=== PATIENT | male | born 1935 | race Two or more races ===

== ENCOUNTER 2017-08-13 12:31 | Emergency (ER) | payer MEDICARE, MEDICAID ==
[~2017-08-13] VITALS: Ht 170.2 cm; Wt 70.3 kg
--- NOTE | 2017-08-13 12:57 | Emergency Room Report ---
History of Present Illness General Chief Complaint: Multiple Trauma/Fall Source: Patient, EMS Present Illness HPI The patient is an 82-year-old male brought in by EMS from an assisted living facility for left-sided hip pain and back pain after slipping and falling yesterday. It was said that he was transitioning from toilet to his wheelchair , slipped, and fell onto his buttock. Pain is now a 9/10 dull ache and does not radiate from these areas. Worse with movement. He denies any other pain or symptoms Allergies: Coded Allergies: No Known Allergies (Unverified , 08/13/17) Patient History Past Medical History: see triage record Pertinent Family History: none Reviewed Nursing Documentation: PMH: Agreed, PSxH: Agreed Nursing Documentation-PMH Hx Hypertension: Yes Hx Diabetes: Yes Review of Systems All Other Systems: negative except mentioned in HPI Physical Exam Vital Signs Date Time Temp Pulse Resp B/P (MAP) Pulse Ox O2 Delivery O2 Flow Rate FiO2 08/13/17 12:24 100.0 85 20 150/84 96 Room Air Sp02 EP Interpretation: reviewed, normal General Appearance: no apparent distress, alert, GCS 15, non-toxic Head: normocephalic, atraumatic Eyes: bilateral eye normal inspection, bilateral eye PERRL ENT: hearing grossly normal, normal pharynx, no angioedema, normal voice Respiratory: chest non-tender, lungs clear, normal breath sounds, speaking full sentences Gastrointestinal: normal bowel sounds, non tender, soft, non-distended, no guarding, no rebound Musculoskeletal: normal range of motion - bilat hips and knees, no calf tenderness, pelvis stable, tender - midline L spine, L pelvis Neurologic: alert, oriented x3, responsive, motor strength/tone normal, sensory intact, speech normal Psychiatric: judgement/insight normal, memory normal, mood/affect normal, no suicidal/homicidal ideation Skin: normal color, no rash, warm/dry, well hydrated Medical Decision Making PA Attestation Dr. Michaels is my supervising physician. Patient management was discussed with my supervising physician Diagnostic Impression: Primary Impression: Contusion of hip, left Qualified Codes: S70.02XA - Contusion of left hip, initial encounter ER Course The patient is an 82-year-old male brought in by EMS from an assisted living facility for left-sided hip pain and back pain after slipping and falling yesterday Ddx considered include but not limited to sprain/strain, fracture, contusion PE: NAD Head NC/AT. There is tenderness to palpation over the mid L-spine. No step-offs. No deformity. There is also tenderness to palpation over the left lateral and anterior hip. No deformity. No leg length discrepancy. No ecchymosis Full AROM intact of bilat hips and knees Chest x-ray unremarkable CT scan of the L. spine and pelvis shows no acute findings The patient is given Tylenol #3 for pain and is feeling better. He'll be discharged back to his facility with the same medication. ER precautions are given Chest X-Ray Diagnostic Results Chest X-Ray Diagnostic Results : Chest X-Ray Ordered: Yes # of Views/Limited/Complete: 1 View Indication: Other EP Interpretation: Yes PA Xray: Interpretation reviewed, by supervising MD, and agrees with findings. Interpretation: no consolidation, no effusion, no pneumothorax, no acute cardiopulmonary disease Impression: No acute disease Electronically Signed by: Curt Black PA-C CT/MRI/US Diagnostic Results CT/MRI/US Diagnostic Results #1: Imaging Test Ordered: CT L spine Impression no acute findings CT/MRI/US Diagnostic Results #2: Imaging Test Ordered: CT pelvis Impression no acute findings Last Vital Signs Date Time Temp Pulse Resp B/P (MAP) Pulse Ox O2 Delivery O2 Flow Rate FiO2 08/13/17 12:24 100.0 85 20 150/84 96 Room Air Status: improved Disposition: ASSISTED LIVING Condition: Improved Scripts Acetaminophen With Codeine (T#3) (TYLENOL #3 TAB*) Y Tab 1 TAB ORAL Q6HR Y for For Pain, #8 TAB Prov: CURT BLACK 08/13/17 CURT BLACK Aug 13, 2017 12:57
[2017-08-13] MEDS ORDERED: Tylenol #3 tab (300mg/30mg) ORAL ONE (13:30)
--- NOTE | 2017-08-13 13:49 | Diagnostic Imaging Report ---
Indication: Back pain. Trauma. Technique: Continuous helical transaxial imaging of the lumbar spine was obtained from the lung bases to the pubic symphysis. No IV contrast was administered. Coronal 2-D reformats were also obtained. Study obtained in a Siemens sensation [address] Total Dose length Product (DLP): 432.[address] Dose Index Volume (CTDIvol): 14.79 mGy Comparison: None Findings: No acute fracture is identified. The bones are osteopenic. Multilevel narrowing of intervertebral discs demonstrated especially at L2-3, L3-4 and L4-5 characterized by narrowing and desiccation. Endplate spurs are noted multiple levels. There is hypertrophied facets at multiple levels. Narrowing of the neural foramina are demonstrated at the L3-4 and L4-5 and L5-S1 bilaterally worse on the right. Aorta is moderately calcified. 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 Atherosclerotic disease The CT scanner at [facility] is accredited by the [employer] and the scans are performed using dose optimization techniques as appropriate to a performed exam including Automatic Exposure control.
--- NOTE | 2017-08-13 14:10 | Diagnostic Imaging Report ---
Indication: Pelvic trauma and pain Technique: Continuous helical transaxial imaging of the pelvis was obtained from the iliac crest to the pubic symphysis. Coronal 2-D reformats were also obtained. Study obtained in a Siemens sensation [address] Intravenous non-ionic contrast was administered. Total Dose length Product (DLP): 373.[address] Dose Index Volume (CTDIvol): 13.23 mGy Comparison: None Findings: No acute fracture is identified. Bones are osteopenic. Moderate stool retention within the rectum noted. Vascular calcifications noted. Impression: No acute fracture identified. The CT scanner at [facility] is accredited by the [employer] and the scans are performed using dose optimization techniques as appropriate to a performed exam including Automatic Exposure control.
[2017-08-13] MEDS ORDERED: ACETAMINOPHEN-1 EAC1 ORAL (14:19)
[2017-08-13 14:28] VITALS: BP 165/90
--- NOTE | 2017-08-13 16:11 | Diagnostic Imaging Report ---
Indication: Chest pain. Trauma Comparison: None A single view chest radiograph was obtained. Findings: Sternotomy noted. No definite infiltrate or pulmonary vascular congestion identified. The heart is enlarged. The aorta is mildly enlarged consistent with atherosclerotic vascular disease. The bones are osteopenic. Impression: No acute disease
[2017-08-13 16:46] VITALS: BP 161/89
[2017-08-13 16:47] VITALS: BP 161/89
== END 2017-08-13 16:49 | disposition home or self-care (01) ==
LOC: EDBD 12:31 → EMR 13:50
DX: S70.02XA Contusion of left hip, initial encounter (principal); I10 Essential (primary) hypertension; E11.9 Type 2 diabetes mellitus without complications; M54.9 Dorsalgia, unspecified; W01.0XXA Fall on same level from slipping, tripping and stumbling without subsequent striking against object, initial encounter; Y92.129 Unspecified place in nursing home as the place of occurrence of the external cause
CPT/HCPCS: 71045; 72131; 72192; 99284

== ENCOUNTER 2017-08-16 13:16 | Inpatient (IN) | payer MEDICARE, MEDICAID ==
[~2017-08-16] VITALS: Ht 172.7 cm; Wt 69.9 kg
[~2017-08-16 13:16] MED LIST: ACETAMINOPHEN-1 EAC1 ORAL
[2017-08-16 13:53] VITALS: BP 137/60
--- NOTE | 2017-08-16 14:16 | Emergency Room Report ---
History of Present Illness General Chief Complaint: Multiple Trauma/Fall Source: Patient, Medical Record, EMS Present Illness HPI 82-year-old male presents with productive cough and chills for 2-3 days. denies chest pain, shortness of breath Patient was here 3 days prior for lower back pain after traumatic fall, had negative CT pelvis and negative CT LS spine HPI otherwise limited d/t ?dementia, Allergies: Coded Allergies: No Known Allergies (Unverified , 08/13/17) Patient History Past Medical History: old chart reviewed Past Surgical History: none Pertinent Family History: none Social History: Denies: smoking, alcohol use, drug use Immunizations: UTD Reviewed Nursing Documentation: PMH: Agreed, PSxH: Agreed Nursing Documentation-PMH Past Medical History: No History, Except For Hx Hypertension: Yes Hx Asthma: Yes Hx Diabetes: Yes Review of Systems All Other Systems: negative except mentioned in HPI Physical Exam Vital Signs Date Time Temp Pulse Resp B/P (MAP) Pulse Ox O2 Delivery O2 Flow Rate FiO2 08/16/17 13:10 99.3 78 24 144/78 97 Nasal Cannula 2.0 Sp02 EP Interpretation: reviewed, normal General Appearance: normal inspection, well appearing, no apparent distress, alert, GCS 15, non-toxic Head: normocephalic, atraumatic Eyes: bilateral eye PERRL, bilateral eye EOMI ENT: normal ENT inspection, hearing grossly normal, normal pharynx, no angioedema, normal voice, TMs + canals normal, uvula midline, moist mucus membranes Neck: normal inspection, full range of motion, supple, thyroid normal, no meningismus, no bony tend Respiratory: normal inspection, lungs clear, normal breath sounds, no respiratory distress, no retraction, no accessory muscle use, rhonchi, speaking full sentences, other - Rhonchi right lung Cardiovascular #1: regular rate, rhythm, no edema, no JVD, normal capillary refill Gastrointestinal: normal inspection, normal bowel sounds, non tender, soft, no mass, no peritonitis, non-distended, no guarding, no hernia, no pulsatile mass Genitourinary: no CVA tenderness Musculoskeletal: normal inspection, back normal, normal range of motion, no calf tenderness, pelvis stable, Bruno's Sign negative Neurologic: normal inspection, alert, responsive, campaign analyst III-XII nml as tested, motor strength/tone normal, cerebellar normal, normal gait, speech normal Psychiatric: normal inspection, judgement/insight normal, mood/affect normal, no suicidal/homicidal ideation, no delusions Skin: normal inspection, normal color, no rash Lymphatic: normal inspection, no adenopathy Medical Decision Making Diagnostic Impression: Primary Impression: Pneumonia Qualified Codes: J18.9 - Pneumonia, unspecified organism Additional Impressions: Cough COLE (acute kidney injury) ER Course 82-year-old male with cough, rhonchi on exam of right lung vitals signs stable, afebrile Very well-appearing, not septic X-rays not demonstrate a lobar pneumonia however Will treat empirically given exam and history of present illness blood cultures pending Labs: no leukocytosis, elevated creatinine could be COLE versus CKD, patient unaware of current kidney function Endorsed to Dr Eric at 216pm as PMD Tele bed EKG Diagnostic Results Rate: normal Rhythm: NSR ST Segments: no acute changes ASA given to the pt in ED: No Rhythm Strip Diag. Results EP Interpretation: yes Rate: 75 Rhythm: NSR, no PVC's, no ectopy Chest X-Ray Diagnostic Results Chest X-Ray Diagnostic Results : Chest X-Ray Ordered: Yes # of Views/Limited/Complete: 1 View Indication: Shortness of Breath EP Interpretation: Yes Interpretation: no consolidation, no effusion, no pneumothorax, no acute cardiopulmonary disease Impression: No acute disease Electronically Signed by: Dr Leon Joyner MD Last Vital Signs Date Time Temp Pulse Resp B/P (MAP) Pulse Ox O2 Delivery O2 Flow Rate FiO2 08/16/17 13:53 99.5 76 23 137/60 99 Nasal Cannula 2.0 Status: improved Disposition: ADMITTED INPATIENT Condition: Serious Referrals: DARREN CADE (PCP) LEON JOYNER M.D. Aug 16, 2017 14:16
--- NOTE | 2017-08-16 14:45 | Diagnostic Imaging Report ---
Indication: Cough Comparison: 08/13/2017 A single view chest radiograph was obtained. Findings: Lung volumes are low and there is vascular crowding at the bases.. Heart size and mediastinal contours are stable. Patient again noted to be status post median sternotomy. Multiple surgical clips project over the central chest. There is no definite focal airspace consolidation. No pleural effusion or pneumothorax. No acute osseous abnormality seen IMPRESSION: No definite focal airspace consolidation. No significant interval change from prior exam 08/13/2017.
[2017-08-16 14:46] LABS: EOSINOPHILS % (AUTO) 0.7 % (0.0-3.0); HEMOGLOBIN 14.5 G/DL (14.2-18.0); LYMPHOCYTES % (AUTO) 32.6 % (20.0-45.0); MEAN CORPUSCULAR VOLUME 91 FL (80-99); MONOCYTES % (AUTO) 11.1 % (1.0-10.0); NEUTROPHILS % (AUTO) 54.7 % (45.0-75.0); PLATELET COUNT 206 K/UL (150-450); RED BLOOD COUNT 4.72 M/UL (4.70-6.10); WHITE BLOOD COUNT 7.5 K/UL (4.8-10.8)
[2017-08-16 15:07] LABS: ANION GAP 12 mmol/L (5-15); BLOOD UREA NITROGEN 61 mg/dL (7-18); CALCIUM 9.7 MG/DL (8.5-10.1); CARBON DIOXIDE 24 MMOL/L (21-32); CHLORIDE 103 MMOL/L (98-107); CREATININE 2.1 MG/DL (0.55-1.30); POTASSIUM 4.1 MMOL/L (3.5-5.1); SODIUM 139 MMOL/L (136-145)
[2017-08-16 15:12] LABS: ALANINE AMINOTRANSFERASE 24 U/L (12-78); ALBUMIN 3.6 G/DL (3.4-5.0); ALBUMIN/GLOBULIN RATIO 0.7 (1.0-2.7); ALKALINE PHOSPHATASE 65 U/L (46-116); ASPARTATE AMINO TRANSFERASE 35 U/L (15-37); BILIRUBIN,TOTAL 0.5 MG/DL (0.2-1.0)
[2017-08-16 15:57] VITALS: BP 140/51
[2017-08-16] MEDS ORDERED: Oseltamivir 75mg cap ORAL ONE (16:15)
--- NOTE | 2017-08-16 17:21 | Infectious Diseases Prog Note ---
Assessment/Plan Problems: (1) Influenza A Assessment & Plan: will start tamiflu renally dosed for 5 days , and keep in droplet isolation (2) Pneumonia Assessment & Plan: due to the above, continue Levaquin empiric coverage, monitor CXR (3) Sepsis Assessment & Plan: due to the above, will send blood culture and continue levaquin for now (4) Fever Assessment & Plan: due to the above, continue antibiotics and Tylenol (5) Diabetes mellitus Assessment & Plan: recommend tight glycemic control to keep blood glucose between 100-140 Subjective Allergies: Coded Allergies: No Known Allergies (Unverified , 08/13/17) Objective Vital Signs Last 24 Hour Vital Signs Date Time Temp Pulse Resp B/P (MAP) Pulse Ox O2 Delivery O2 Flow Rate FiO2 08/16/17 15:57 98.8 74 23 140/51 98 Room Air 74 08/16/17 13:53 99.5 76 23 137/60 99 Nasal Cannula 2.0 08/16/17 13:10 99.3 78 24 144/78 97 Nasal Cannula 2.0 Height (Feet): 5 Height (Inches): 10.00 Weight (Pounds): 170 Microbiology Date/Time Source Procedure Growth Status 08/16/17 14:50 Nasal Nares Influenza Types A,B Antigen ([facility]) - Final Complete Laboratory Tests Test 08/16/17 14:25 White Blood Count 7.5 K/UL (4.8-10.8) Red Blood Count 4.72 M/UL (4.70-6.10) Hemoglobin 14.5 G/DL (14.2-18.0) Hematocrit 43.0 % (42.0-52.0) Mean Corpuscular Volume 91 FL (80-99) Mean Corpuscular Hemoglobin 30.7 PG (27.0-31.0) Mean Corpuscular Hemoglobin Concent 33.7 G/DL (32.0-36.0) Red Cell Distribution Width 11.0 % (11.6-14.8) L Platelet Count 206 K/UL (150-450) Mean Platelet Volume 7.0 FL (6.5-10.1) Neutrophils (%) (Auto) 54.7 % (45.0-75.0) Lymphocytes (%) (Auto) 32.6 % (20.0-45.0) Monocytes (%) (Auto) 11.1 % (1.0-10.0) H Eosinophils (%) (Auto) 0.7 % (0.0-3.0) Basophils (%) (Auto) 1.0 % (0.0-2.0) Sodium Level 139 MMOL/L (136-145) Potassium Level 4.1 MMOL/L (3.5-5.1) Chloride Level 103 MMOL/L (98-107) Carbon Dioxide Level 24 MMOL/L (21-32) Anion Gap 12 mmol/L (5-15) Blood Urea Nitrogen 61 mg/dL (7-18) H Creatinine 2.1 MG/DL (0.55-1.30) H Estimat Glomerular Filtration Rate mL/min (>60) Glucose Level 205 MG/DL (74-106) H Calcium Level 9.7 MG/DL (8.5-10.1) Total Bilirubin 0.5 MG/DL (0.2-1.0) Aspartate Amino Transf (AST/SGOT) 35 U/L (15-37) Alanine Aminotransferase (ALT/SGPT) 24 U/L (12-78) Alkaline Phosphatase 65 U/L (46-116) Total Protein 8.6 G/DL (6.4-8.2) H Albumin 3.6 G/DL (3.4-5.0) Globulin 5.0 g/dL Albumin/Globulin Ratio 0.7 (1.0-2.7) L Current Medications Medications (Trade) Dose Ordered Sig/Sai Route PRN Reason Start Time Stop Time Status Last Admin Dose Admin Oseltamivir Phosphate (Tamiflu) 30 mg BID ORAL 08/16/17 18:00 08/21/17 17:59 Sodium Chloride 1,000 ml @ 75 mls/hr [id number] IV 08/16/17 18:30 09/15/17 18:29 Hernandez Garrett M.D. Aug 16, 2017 17:21
[2017-08-16] MEDS ORDERED: MIRTAZAPINE7.5 MG ORAL (18:26)
[2017-08-16 18:30] VITALS: BP 127/90
[2017-08-16] MEDS ORDERED: VESICARE5 MG ORAL (18:34)
[2017-08-16] MEDS ORDERED: JANUVIA100 MG ORAL (18:34)
[2017-08-16] MEDS ORDERED: TAMSULOSIN HCL0.4 MG ORAL (18:34)
[2017-08-16] MEDS ORDERED: LYRICA25 MG ORAL (18:34)
[2017-08-16] MEDS ORDERED: RAMIPRIL10 MG ORAL (18:34)
[2017-08-16] MEDS ORDERED: DONEPEZIL HCL10 MG ORAL (18:34)
[2017-08-16] MEDS ORDERED: AMLODIPINE BESYL5 MG ORAL (18:34)
[2017-08-16] MEDS ORDERED: PLAVIX75 MG ORAL (18:34)
[2017-08-16] MEDS ORDERED: CATAPRES0.1 MG ORAL (18:34)
[2017-08-16] MEDS ORDERED: MELOXICAM7.5 MG PO (18:34)
[2017-08-16] MEDS ORDERED: DOK250 M1 PO (18:34)
[2017-08-16] MEDS ORDERED: ECONAZOLE NITRA15 GM TOP (18:34)
[2017-08-16] MEDS ORDERED: METFORMIN HCL1000 M1 ORAL (18:34)
[2017-08-16] MEDS ORDERED: JARDIANCE PO (18:46)
[2017-08-16] MEDS ORDERED: [UNRECOGNIZED DRUG - CODE] (18:46)
[2017-08-16 19:30] VITALS: BP 140/53
[2017-08-16] MEDS: Ramipril 5mg cap ORAL SCH (21:00)
[2017-08-16] MEDS: Donepezil 10mg tab ORAL SCH (21:34)
[2017-08-16] MEDS: Tamsulosin 0.4mg cap ORAL SCH (21:34)
[2017-08-16] MEDS: NovoLOG Insulin Flexpen SUBQ SCH (21:36)
--- NOTE | 2017-08-16 21:45 | History and Physical Report ---
DATE OF ADMISSION: 08/16/2017 CHIEF COMPLAINT: Cough for past 4 or 5 days. 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 The patient had a fall last week and was brought in by paramedics and CT of pelvic and spine were done and were negative for any fracture. The patient has not been eating and he had very poor appetite in the assisted living where he resides. He denies any shortness of breath or chest pain. PAST MEDICAL HISTORY: History of hypertension, diabetes, BPH, mild dementia, coronary artery disease, depression, and osteoarthritis. PAST SURGICAL HISTORY: None. ALLERGIES: No known drug allergies. SOCIAL HISTORY: No history of smoking, alcohol or drug use. FAMILY HISTORY: Noncontributory. REVIEW OF SYSTEMS: Negative except per history of present illness. PHYSICAL EXAMINATION: GENERAL APPEARANCE: Alert and oriented x3. No acute distress. VITAL SIGNS: Temperature 99.3 degrees, pulse 78, respirations 24, blood pressure 144/78, and pulse oximetry 97% on 2 liters. HEENT: Normocephalic and normochromic. Extraocular muscles intact. Throat is clear. NECK: Supple. No lymphadenopathy. LUNGS: Clear to auscultation, but slight rhonchi on the right side. CARDIOVASCULAR: Regular rate and rhythm. No murmur or gallop. ABDOMEN: Soft, nontender, and nondistended. Positive bowel sounds. EXTREMITIES: No edema, cyanosis or clubbing. GENITOURINARY: No CVA tenderness. NEUROLOGIC: Respond to commands and cranial nerve II through XII is intact. SKIN: No rash. LABORATORY AND DIAGNOSTIC DATA: WBC 7.5, hemoglobin 14.5, hematocrit 43.0, platelet count 206, neutrophils 54.7, lymphocytes 32, and monos 11.1. Sodium 139, potassium 4.1, chloride 103, BUN is 61, and creatinine 2.1. Glucose 205. Calcium 9.7. Bilirubin 0.5. AST 35, ALT 24, and alkaline phosphatase 65. Total protein 8.6. Albumin 3.6. Chest x-ray did not show any consolidation. Microbiology showed influenza A positive. IMPRESSION AND PLAN: 1. Influenza A. 2. Pneumonia. 3. Hypertension. 4. Diabetes mellitus type 2. 5. Acute renal failure secondary to prerenal azotemia. We will hydrate the patient with intravenous fluids and control the infection with intravenous antibiotics. Also restart the patient on Tamiflu and consult ID for further care. Restart the patient's home medications while the patient goes to the floor. This patient will be admitted for minimum of two-night stay for diagnoses of influenza and pneumonia. Oliver Mcallister M.D. DR: LIZZ JOB#: [id number] CC: AYO
--- NOTE | 2017-08-16 22:45 | Consultation ---
DATE OF CONSULTATION: 08/16/2017 INFECTIOUS DISEASE CONSULTATION CONSULTING PHYSICIAN: Hernandez Garrett M.D. REQUESTING PHYSICIAN: Oliver Mcallister M.D. REASON FOR CONSULTATION: Influenza A infection with pneumonia, possible sepsis, recommendation for antibiotics treatment. HISTORY OF PRESENT ILLNESS: The patient is an 82-year-old male with past medical history of hypertension, asthma, and diabetes, was brought in from assisted living for productive cough and chills for three days. The patient was recently evaluated in the emergency room for lower back pain after he fell and had a negative CT scan of the pelvic and lumbar spine today and he was brought in for fever and persistent cough. The patient was found to be febrile in the emergency room and had influenza screening, which turned back positive for influenza A. Chest x-ray did not show any significant infiltration, but he was coughing with phlegm, so the patient received Tamiflu and Levaquin in the emergency room and I was consulted by the primary provider for antibiotics treatment and further management. As of note, the patient has dementia, poor historian, unable to provide good history. History was mainly obtained from the medical record. REVIEW OF SYSTEMS: Unable to obtain, the patient is a poor historian, cannot provide good history. PAST MEDICAL HISTORY: Significant for hypertension, asthma, and diabetes. PAST SURGICAL HISTORY: Negative. ALLERGIES: He has no known drug allergy. MEDICATIONS: He received Tamiflu and Levaquin in the emergency room. For the rest of his medications, please refer to MAR. SOCIAL HISTORY: The patient lives in the assisted living. Denied using any drugs, tobacco, or alcohol. FAMILY HISTORY: Unable to obtain. PHYSICAL EXAMINATION: VITAL SIGNS: Temperature 99.5, pulse 76, respirations 23, blood pressure 127/60, and saturation 99% on two liters nasal cannula. GENERAL: Elderly male, lying in bed, awake, alert, coughing, not in acute distress. HEENT: Normocephalic and atraumatic. Pupils are reactive to light. Moist oral mucosa. He has denture with no ulceration or thrush. NECK: Supple. No lymphadenopathy. CARDIOVASCULAR: Regular rate and rhythm. No murmur or gallop. LUNGS: He had crackles and rhonchi on the right side. Diminished breathing sounds. ABDOMEN: Soft, nontender, and nondistended. Positive bowel sounds. No hepatosplenomegaly. No ascites. EXTREMITIES: No edema or cyanosis. LABORATORY AND DIAGNOSTIC DATA: Labs showed white count of 7.5, hemoglobin of 14.5, and platelet count of 206,000. BUN of 61, creatinine of 2.1. AST of 35, ALT of 24. Microbiology, influenza screening was positive for influenza A. Imaging, chest x-ray showed no definite focal airspace consolidation, no significant interval change from prior exam on 08/13/2017. ASSESSMENT AND RECOMMENDATIONS: 1. Influenza A. We will start the patient on Tamiflu renally dosed for five days keeping in droplet isolation for now. 2. Pneumonia, suspect due to influenza complication. We will continue Levaquin empiric coverage. Monitor chest x-ray. 3. Sepsis due to the above. We will send blood culture and continue Levaquin empiric coverage pending culture. 4. Fever due to the above. Continue antibiotics and Tylenol as needed. 5. Diabetes. Recommend tight glycemic control to keep blood glucose between 100 to 140. Thank you for the consult. Infectious Disease will continue to follow. Hernandez Garrett M.D. DR: JEN JOB#: [id number] CC:
[2017-08-17] VITALS: BP 146/73
[2017-08-17 04:00] VITALS: BP 157/69
[2017-08-17] MEDS: sitaGLIPtin 25mg tab ORAL SCH (06:39)
[2017-08-17] MEDS: NovoLOG Insulin Flexpen SUBQ SCH ×4 (06:40→21:16)
[2017-08-17 07:53] LABS: BASOPHILS % (AUTO) 1.3 % (0.0-2.0); EOSINOPHILS % (AUTO) 1.1 % (0.0-3.0); HEMATOCRIT 36.8 % (42.0-52.0); HEMOGLOBIN 12.5 G/DL (14.2-18.0); LYMPHOCYTES % (AUTO) 32.6 % (20.0-45.0); MEAN CORPUSCULAR VOLUME 91 FL (80-99); MONOCYTES % (AUTO) 11.6 % (1.0-10.0); NEUTROPHILS % (AUTO) 53.4 % (45.0-75.0); PLATELET COUNT 166 K/UL (150-450); RED BLOOD COUNT 4.06 M/UL (4.70-6.10); RED CELL DISTRIBUTION WIDTH 11.1 % (11.6-14.8); WHITE BLOOD COUNT 6.5 K/UL (4.8-10.8)
[2017-08-17 08:00] VITALS: BP 139/65
[2017-08-17 08:36] LABS: ANION GAP 13 mmol/L (5-15); BLOOD UREA NITROGEN 54 mg/dL (7-18); CALCIUM 9.2 MG/DL (8.5-10.1); CARBON DIOXIDE 21 MMOL/L (21-32); CHLORIDE 105 MMOL/L (98-107); CREATININE 1.8 MG/DL (0.55-1.30); SODIUM 138 MMOL/L (136-145)
[2017-08-17] MEDS: Ramipril 5mg cap ORAL SCH ×2 (08:40→21:15)
[2017-08-17] MEDS ORDERED: Oseltamivir 75mg cap ORAL SCH (09:00)
[2017-08-17 09:33] LABS: APPEARANCE,URINE CLEAR; BILIRUBIN, URINE NEGATIVE (NEGATIVE); GLUCOSE, URINE (UA) NEGATIVE (NEGATIVE); KETONES,URINE NEGATIVE (NEGATIVE); LEUKOCYTE ESTERASE ,URINE NEGATIVE (NEGATIVE); NITRITE,URINE NEGATIVE (NEGATIVE); PH,URINE 5 (4.5-8.0); PROTEIN,URINE 2+ (NEGATIVE); UROBILINOGEN,URINE NORMAL MG/DL (0.0-1.0)
[2017-08-17 09:39] LABS: COLOR,URINE YELLOW
[2017-08-17 12:15] VITALS: BP 145/71
--- NOTE | 2017-08-17 14:59 | Infectious Diseases Prog Note ---
Assessment/Plan Problems: (1) Influenza A Assessment & Plan: continue tamiflu renally dosed for 5 days , and keep in droplet isolation for now (2) Pneumonia Assessment & Plan: due to the above, continue Levaquin empiric coverage, monitor CXR (3) Sepsis Assessment & Plan: due to the above, await blood culture and continue levaquin for now (4) Fever Assessment & Plan: due to the above, continue antibiotics and Tylenol (5) Diabetes mellitus Assessment & Plan: recommend tight glycemic control to keep blood glucose between 100-140 Subjective Constitutional: Reports: fatigue HEENT: Reports: no symptoms Respiratory: Reports: productive cough Breasts: Reports: no symptoms Cardiovascular: Reports: no symptoms Gastrointestinal/Abdominal: Reports: no symptoms Genitourinary: Reports: no symptoms Neurologic: Reports: weakness Psychiatric: Reports: no symptoms Skin: Reports: no symptoms Endocrine: Reports: no symptoms Hematologic: Reports: no symptoms Allergies: Coded Allergies: No Known Allergies (Unverified , 08/13/17) Objective Vital Signs Last 24 Hour Vital Signs Date Time Temp Pulse Resp B/P (MAP) Pulse Ox O2 Delivery O2 Flow Rate FiO2 08/17/17 12:15 97.3 78 21 145/71 97 Room Air 08/17/17 08:41 68 135/65 08/17/17 08:40 135/65 08/17/17 08:00 97.3 68 18 139/65 97 08/17/17 04:00 Room Air 08/17/17 04:00 98.2 87 20 157/69 96 08/17/17 00:00 Room Air 08/17/17 00:00 97.0 78 20 146/73 96 08/16/17 21:00 142/76 08/16/17 20:10 75 20 140/53 96 Room Air 08/16/17 19:30 99.5 75 20 140/53 96 Room Air 2.0 08/16/17 18:30 99.4 73 16 127/90 99 Room Air 73 08/16/17 15:57 98.8 74 23 140/51 98 Room Air 74 Height (Feet): 5 Height (Inches): 8.00 Weight (Pounds): 154 General Appearance: WD/WN, no acute distress HEENT: normocephalic, atraumatic, anicteric, mucous membranes moist, PERRL, EOMI, pharynx normal, supple, no JVD Respiratory/Chest: chest wall non-tender, no respiratory distress, no accessory muscle use, decreased breath sounds, crackles/rales Cardiovascular: normal peripheral pulses, normal rate, regular rhythm, no gallop/murmur, no JVD Abdomen: normal bowel sounds, soft, non tender, no organomegaly, non distended , no mass, no scars Extremities: no cyanosis, no clubbing Skin: no rash, no lesions, no ulcers Neurologic/Psychiatric: alert, responsive Microbiology Date/Time Source Procedure Growth Status 08/16/17 14:50 Nasal Nares Influenza Types A,B Antigen ([facility]) - Final Complete Laboratory Tests Test 08/17/17 05:30 08/17/17 06:17 Urine Color Yellow Urine Appearance Clear Urine pH 5 (4.5-8.0) Urine Specific [place] 1.020 (1.005-1.035) Urine Protein 2+ (NEGATIVE) H Urine Glucose (UA) Negative (NEGATIVE) Urine Ketones Negative (NEGATIVE) Urine Occult Blood Negative (NEGATIVE) Urine Nitrite Negative (NEGATIVE) Urine Bilirubin Negative (NEGATIVE) Urine Urobilinogen Normal MG/DL (0.0-1.0) Urine Leukocyte Esterase Negative (NEGATIVE) Urine RBC 0 /HPF (0 - 0) Urine WBC 0-2 /HPF (0 - 0) Urine Squamous Epithelial Cells Occasional /LPF Urine Bacteria Few /HPF (NONE) Urine Fine Granular Casts 0-2 /LPF (NONE) H White Blood Count 6.5 K/UL (4.8-10.8) Red Blood Count 4.06 M/UL (4.70-6.10) L Hemoglobin 12.5 G/DL (14.2-18.0) L Hematocrit 36.8 % (42.0-52.0) L Mean Corpuscular Volume 91 FL (80-99) Mean Corpuscular Hemoglobin 30.7 PG (27.0-31.0) Mean Corpuscular Hemoglobin Concent 33.9 G/DL (32.0-36.0) Red Cell Distribution Width 11.1 % (11.6-14.8) L Platelet Count 166 K/UL (150-450) Mean Platelet Volume 6.6 FL (6.5-10.1) Neutrophils (%) (Auto) 53.4 % (45.0-75.0) Lymphocytes (%) (Auto) 32.6 % (20.0-45.0) Monocytes (%) (Auto) 11.6 % (1.0-10.0) H Eosinophils (%) (Auto) 1.1 % (0.0-3.0) Basophils (%) (Auto) 1.3 % (0.0-2.0) Sodium Level 138 MMOL/L (136-145) Potassium Level 4.0 MMOL/L (3.5-5.1) Chloride Level 105 MMOL/L (98-107) Carbon Dioxide Level 21 MMOL/L (21-32) Anion Gap 13 mmol/L (5-15) Blood Urea Nitrogen 54 mg/dL (7-18) H Creatinine 1.8 MG/DL (0.55-1.30) H Estimat Glomerular Filtration Rate mL/min (>60) Glucose Level 170 MG/DL (74-106) H Calcium Level 9.2 MG/DL (8.5-10.1) Current Medications Medications (Trade) Dose Ordered Sig/Sai Route PRN Reason Start Time Stop Time Status Last Admin Dose Admin Amlodipine Besylate (Norvasc) 5 mg DAILY ORAL 08/17/17 09:00 09/16/17 08:59 08/17/17 08:41 Clopidogrel Bisulfate (Plavix) 75 mg DAILY ORAL 08/17/17 09:00 09/16/17 08:59 08/17/17 08:40 Dextrose (Dextrose 50%) STAT PRN IV Hypoglycemia 08/16/17 18:45 09/15/17 18:44 Donepezil HCl (Aricept) 10 mg QHS ORAL 08/16/17 21:00 09/15/17 20:59 08/16/17 21:34 Insulin Aspart (NovoLOG) BEFORE MEALS AND HS SUBQ 08/16/17 21:00 09/15/17 20:59 08/17/17 06:40 Levofloxacin 150 ml @ 150 mls/hr Q48H IVPB 08/18/17 15:00 08/25/17 23:59 Meloxicam (Mobic) 7.5 mg DAILY ORAL 08/17/17 09:00 09/16/17 08:59 08/17/17 08:40 Mirtazapine (Remeron) 7.5 mg BEDTIME ORAL 08/16/17 21:00 09/15/17 20:59 08/16/17 21:34 Oseltamivir Phosphate (Tamiflu) 30 mg BID ORAL 08/16/17 18:00 08/21/17 17:59 08/17/17 08:40 Ramipril (Altace) 10 mg Q12HR ORAL 08/16/17 21:00 09/15/17 20:59 08/17/17 08:40 Sitagliptin Phosphate (Januvia) 25 mg ACBREAKFAST ORAL 08/17/17 06:30 09/16/17 06:29 08/17/17 06:39 Sodium Chloride 1,000 ml @ 75 mls/hr [id number] IV 08/16/17 18:30 09/15/17 18:29 08/17/17 12:45 Tamsulosin HCl (Flomax) 0.4 mg BEDTIME ORAL 08/16/17 21:00 09/15/17 20:59 08/16/17 21:34 Hernandez Garrett M.D. Aug 17, 2017 14:59
[2017-08-17 16:13] VITALS: BP 135/74
--- NOTE | 2017-08-17 18:09 | General Progress Note ---
Assessment/Plan Status: stable Assessment/Plan 1. Influenza A - cont renal dose Tamiflu bid for total of 5 days. 2. Clinical Pneumonia - cont levaquin 3. DM II - on Januvia and SSI for now. 4. HTN - controlled on home meds. 5. CAD - on Plavix 75 mg one po daily. 6. BPH - cont flomax 0.4 mg po qhs. 7. Depression - on remeron 7.5 mg po qhs 8. ARF - improving - cont IVF hydration. Subjective Date patient seen: Aug 17, 2017 Time patient seen: 06:05 Constitutional: Reports: malaise HEENT: Reports: no symptoms Cardiovascular: Reports: no symptoms Respiratory: Reports: cough Gastrointestinal/Abdominal: Reports: no symptoms Genitourinary: Reports: no symptoms Neurologic/Psychiatric: Reports: no symptoms Endocrine: Reports: no symptoms Hematologic/Lymphatic: Reports: no symptoms Allergies: Coded Allergies: No Known Allergies (Unverified , 08/13/17) Subjective Patient is doing better today. no sob or chest pain. He still coughing. no fever or chills. Objective Last 24 Hour Vital Signs Date Time Temp Pulse Resp B/P (MAP) Pulse Ox O2 Delivery O2 Flow Rate FiO2 08/17/17 16:13 97.6 66 20 135/74 97 Room Air 08/17/17 12:15 97.3 78 21 145/71 97 Room Air 08/17/17 08:41 68 135/65 08/17/17 08:40 135/65 08/17/17 08:00 97.3 68 18 139/65 97 08/17/17 04:00 Room Air 08/17/17 04:00 98.2 87 20 157/69 96 08/17/17 00:00 Room Air 08/17/17 00:00 97.0 78 20 146/73 96 08/16/17 21:00 142/76 08/16/17 20:10 75 20 140/53 96 Room Air 08/16/17 19:30 99.5 75 20 140/53 96 Room Air 2.0 08/16/17 18:30 99.4 73 16 127/90 99 Room Air 73 Intake and Output 08/16/17 08/17/17 19:00 07:00 Intake Total 675 ml Balance 675 ml IV Total 675 ml # Voids 2 Laboratory Tests 08/17/17 05:30: Urine Color Yellow, Urine Appearance Clear, Urine pH 5, Urine Specific [place] 1.020, Urine Protein 2+H, Urine Glucose (UA) Negative, Urine Ketones Negative, Urine Occult Blood Negative, Urine Nitrite Negative, Urine Bilirubin Negative, Urine Urobilinogen Normal, Urine Leukocyte Esterase Negative, Urine RBC 0, Urine WBC 0-2, Urine Squamous Epithelial Cells Occasional, Urine Bacteria Few, Urine Fine Granular Casts 0-2H 08/17/17 06:17: White Blood Count 6.5, Red Blood Count 4.06L, Hemoglobin 12.5L, Hematocrit 36.8L , Mean Corpuscular Volume 91, Mean Corpuscular Hemoglobin 30.7, Mean Corpuscular Hemoglobin Concent 33.9, Red Cell Distribution Width 11.1L, Platelet Count 166, Mean Platelet Volume 6.6, Neutrophils (%) (Auto) 53.4, Lymphocytes (%) (Auto) 32.6, Monocytes (%) (Auto) 11.6H, Eosinophils (%) (Auto) 1.1, Basophils (%) (Auto) 1.3, Sodium Level 138, Potassium Level 4.0, Chloride Level 105, Carbon Dioxide Level 21, Anion Gap 13, Blood Urea Nitrogen 54H, Creatinine 1.8H, Estimat Glomerular Filtration Rate , Glucose Level 170H, Calcium Level 9.2 Height (Feet): 5 Height (Inches): 8.00 Weight (Pounds): 154 General Appearance: no apparent distress, alert EENT: normal ENT inspection Neck: non-tender, normal alignment, supple Cardiovascular: normal peripheral pulses, normal rate, regular rhythm Respiratory/Chest: normal breath sounds, no respiratory distress, rhonchi - right Abdomen: normal bowel sounds, non tender, soft Extremities: normal range of motion, non-tender Edema: no edema noted Arm (L), no edema noted Arm (R), no edema noted Leg (L), no edema noted Leg (R), no edema noted Pedal (L), no edema noted Pedal (R), no edema noted Generalized Neurologic: alert, oriented x 3, responsive Skin: warm/dry Lymphatic: normal anterior cervical (L), normal anterior cervical (R), normal posterior cervical (L), normal posterior cervical (R), normal submandibular (L) , normal submandibular (R), normal supraclavicular (L), normal supraclavicular ( R), normal axillary (L), normal axillary (R), normal inguinal (L), normal inguinal (R), normal other DARREN CADE Aug 17, 2017 18:09
[2017-08-17 20:00] VITALS: BP 134/71
[2017-08-17] MEDS: Tamsulosin 0.4mg cap ORAL SCH (21:14)
[2017-08-17] MEDS: Donepezil 10mg tab ORAL SCH (21:14)
[2017-08-17] MEDS: Heparin 5000 units/ml inj SUBQ SCH (21:19)
[2017-08-18] VITALS: BP 124/75
[2017-08-18 04:00] VITALS: BP 149/69
[2017-08-18] MEDS: NovoLOG Insulin Flexpen SUBQ SCH ×4 (06:20→20:54)
[2017-08-18] MEDS: sitaGLIPtin 25mg tab ORAL SCH (06:21)
[2017-08-18 07:12] LABS: EOSINOPHILS % (AUTO) 4.2 % (0.0-3.0); HEMATOCRIT 38.8 % (42.0-52.0); HEMOGLOBIN 13.2 G/DL (14.2-18.0); LYMPHOCYTES % (AUTO) 43.9 % (20.0-45.0); MEAN CORPUSCULAR VOLUME 90 FL (80-99); MONOCYTES % (AUTO) 10.1 % (1.0-10.0); NEUTROPHILS % (AUTO) 40.9 % (45.0-75.0); PLATELET COUNT 183 K/UL (150-450); RED CELL DISTRIBUTION WIDTH 11.2 % (11.6-14.8); WHITE BLOOD COUNT 6.7 K/UL (4.8-10.8)
[2017-08-18 07:13] LABS: ANION GAP 9 mmol/L (5-15); BLOOD UREA NITROGEN 39 mg/dL (7-18); CALCIUM 9.1 MG/DL (8.5-10.1); CARBON DIOXIDE 25 MMOL/L (21-32); CHLORIDE 106 MMOL/L (98-107); CREATININE 1.5 MG/DL (0.55-1.30); SODIUM 140 MMOL/L (136-145)
[2017-08-18 08:00] VITALS: BP 140/69
--- NOTE | 2017-08-18 10:18 | General Progress Note ---
Assessment/Plan Status: stable Assessment/Plan 1. Influenza A - cont renal dose Tamiflu bid for total of 5 days. 2. Clinical Pneumonia - cont levaquin 3. DM II - on Januvia and SSI for now. 4. HTN - controlled on home meds. 5. CAD - on Plavix 75 mg one po daily. 6. BPH - cont flomax 0.4 mg po qhs. 7. Depression - on remeron 7.5 mg po qhs 8. ARF 2nd to pre-renal azotemia - improving - cont IVF hydration. 9. Generalized weakness - PT eval done. [facility]. Subjective Date patient seen: Aug 18, 2017 Time patient seen: 10:10 Constitutional: Reports: no symptoms HEENT: Reports: no symptoms Cardiovascular: Reports: no symptoms Respiratory: Reports: cough Gastrointestinal/Abdominal: Reports: no symptoms Genitourinary: Reports: no symptoms Neurologic/Psychiatric: Reports: no symptoms Endocrine: Reports: no symptoms Hematologic/Lymphatic: Reports: no symptoms Allergies: Coded Allergies: No Known Allergies (Unverified , 08/13/17) Subjective Patient is doing better. no sob or chest pain. He still coughing but improved. no fever or chills. Objective Last 24 Hour Vital Signs Date Time Temp Pulse Resp B/P (MAP) Pulse Ox O2 Delivery O2 Flow Rate FiO2 08/18/17 08:00 96.8 66 18 140/69 98 08/18/17 04:00 97.6 72 16 149/69 97 Room Air 08/18/17 00:00 97.2 63 18 124/75 96 Room Air 08/17/17 21:15 134/71 08/17/17 20:00 96.8 60 16 134/71 97 Room Air 08/17/17 16:13 97.6 66 20 135/74 97 Room Air 08/17/17 12:15 97.3 78 21 145/71 97 Room Air Intake and Output 08/17/17 08/18/17 19:00 07:00 Intake Total 1590 ml 1185 ml Output Total 600 ml 500 ml Balance 990 ml 685 ml Intake Oral 840 ml 360 ml IV Total 750 ml 825 ml Output Urine Total 600 ml 500 ml # Voids 5 Laboratory Tests 08/18/17 06:35: White Blood Count 6.7, Red Blood Count 4.30L, Hemoglobin 13.2L, Hematocrit 38.8L , Mean Corpuscular Volume 90, Mean Corpuscular Hemoglobin 30.7, Mean Corpuscular Hemoglobin Concent 34.0, Red Cell Distribution Width 11.2L, Platelet Count 183, Mean Platelet Volume 6.9, Neutrophils (%) (Auto) 40.9L, Lymphocytes (%) (Auto) 43.9, Monocytes (%) (Auto) 10.1H, Eosinophils (%) (Auto) 4.2H, Basophils (%) (Auto) 1.0, Sodium Level 140, Potassium Level 4.0, Chloride Level 106, Carbon Dioxide Level 25, Anion Gap 9, Blood Urea Nitrogen 39H, Creatinine 1.5H, Estimat Glomerular Filtration Rate , Glucose Level 187H, Calcium Level 9.1 Height (Feet): 5 Height (Inches): 8.00 Weight (Pounds): 154 General Appearance: no apparent distress, alert EENT: normal ENT inspection Neck: non-tender, normal alignment, supple Cardiovascular: normal peripheral pulses, normal rate, regular rhythm Respiratory/Chest: normal breath sounds, no respiratory distress Abdomen: normal bowel sounds, non tender, soft Extremities: normal range of motion, non-tender Edema: no edema noted Arm (L), no edema noted Arm (R), no edema noted Leg (L), no edema noted Leg (R), no edema noted Pedal (L), no edema noted Pedal (R), no edema noted Generalized Neurologic: alert, oriented x 3, responsive Skin: warm/dry Lymphatic: normal anterior cervical (L), normal anterior cervical (R), normal posterior cervical (L), normal posterior cervical (R), normal submandibular (L) , normal submandibular (R), normal supraclavicular (L), normal supraclavicular ( R), normal axillary (L), normal axillary (R), normal inguinal (L), normal inguinal (R), normal other DARREN CADE Aug 18, 2017 10:18
[2017-08-18] MEDS: Ramipril 5mg cap ORAL SCH ×2 (10:26→20:50)
[2017-08-18] MEDS: Heparin 5000 units/ml inj SUBQ SCH ×2 (10:28→20:54)
[2017-08-18 12:00] VITALS: BP 159/76
[2017-08-18] MEDS ORDERED: Norco 5mg/325mg tab ORAL PRN (15:30)
[2017-08-18 16:15] VITALS: BP 137/69
--- NOTE | 2017-08-18 16:29 | Infectious Diseases Prog Note ---
Assessment/Plan Problems: (1) Influenza A Assessment & Plan: continue tamiflu renally dosed for 5 days , and keep in droplet isolation (2) Pneumonia Assessment & Plan: due to the above, continue Levaquin empiric coverage for 7 days , monitor CXR (3) Sepsis Assessment & Plan: due to the above, await blood culture and continue levaquin for now (4) Fever Assessment & Plan: due to the above, continue antibiotics and Tylenol (5) Diabetes mellitus Assessment & Plan: recommend tight glycemic control to keep blood glucose between 100-140 Subjective ROS Limited/Unobtainable: Yes Allergies: Coded Allergies: No Known Allergies (Unverified , 08/13/17) Subjective he was up in bed, awkae and alert, has mild cough, no fever or chills, no SOB, no chest pain Objective Vital Signs Last 24 Hour Vital Signs Date Time Temp Pulse Resp B/P (MAP) Pulse Ox O2 Delivery O2 Flow Rate FiO2 08/18/17 12:00 96.2 68 18 159/76 97 08/18/17 10:26 140/69 08/18/17 10:25 66 140/69 08/18/17 08:00 96.8 66 18 140/69 98 08/18/17 04:00 97.6 72 16 149/69 97 Room Air 08/18/17 00:00 97.2 63 18 124/75 96 Room Air 08/17/17 21:15 134/71 08/17/17 20:00 96.8 60 16 134/71 97 Room Air Height (Feet): 5 Height (Inches): 8.00 Weight (Pounds): 154 General Appearance: WD/WN, no acute distress HEENT: normocephalic, atraumatic, anicteric, mucous membranes moist, PERRL Respiratory/Chest: normal breath sounds, no respiratory distress, no accessory muscle use, decreased breath sounds, crackles/rales Cardiovascular: normal peripheral pulses, normal rate, regular rhythm, no gallop/murmur, no JVD Abdomen: normal bowel sounds, soft, non tender, no organomegaly, non distended , no mass, no scars Genitourinary: normal external genitalia Extremities: no cyanosis, no clubbing Skin: no rash, no lesions, no ulcers Neurologic/Psychiatric: alert, responsive Microbiology Date/Time Source Procedure Growth Status 08/16/17 14:46 Blood Blood Culture - Preliminary NO GROWTH AFTER 24 HOURS Resulted 08/16/17 14:25 Blood Blood Culture - Preliminary NO GROWTH AFTER 24 HOURS Resulted 08/16/17 14:50 Nasal Nares Influenza Types A,B Antigen (MARYLIN) - Final Complete Laboratory Tests Test 08/18/17 06:35 White Blood Count 6.7 K/UL (4.8-10.8) Red Blood Count 4.30 M/UL (4.70-6.10) L Hemoglobin 13.2 G/DL (14.2-18.0) L Hematocrit 38.8 % (42.0-52.0) L Mean Corpuscular Volume 90 FL (80-99) Mean Corpuscular Hemoglobin 30.7 PG (27.0-31.0) Mean Corpuscular Hemoglobin Concent 34.0 G/DL (32.0-36.0) Red Cell Distribution Width 11.2 % (11.6-14.8) L Platelet Count 183 K/UL (150-450) Mean Platelet Volume 6.9 FL (6.5-10.1) Neutrophils (%) (Auto) 40.9 % (45.0-75.0) L Lymphocytes (%) (Auto) 43.9 % (20.0-45.0) Monocytes (%) (Auto) 10.1 % (1.0-10.0) H Eosinophils (%) (Auto) 4.2 % (0.0-3.0) H Basophils (%) (Auto) 1.0 % (0.0-2.0) Sodium Level 140 MMOL/L (136-145) Potassium Level 4.0 MMOL/L (3.5-5.1) Chloride Level 106 MMOL/L (98-107) Carbon Dioxide Level 25 MMOL/L (21-32) Anion Gap 9 mmol/L (5-15) Blood Urea Nitrogen 39 mg/dL (7-18) H Creatinine 1.5 MG/DL (0.55-1.30) H Estimat Glomerular Filtration Rate mL/min (>60) Glucose Level 187 MG/DL (74-106) H Calcium Level 9.1 MG/DL (8.5-10.1) Current Medications Medications (Trade) Dose Ordered Sig/Sai Route PRN Reason Start Time Stop Time Status Last Admin Dose Admin Acetaminophen (Tylenol) 650 mg Q6H PRN ORAL Mild Pain/Temp > 100.5 08/18/17 15:30 09/17/17 15:29 08/18/17 15:46 Acetaminophen/ Hydrocodone Bitart ([place] 5/325) 1 tab Q6H PRN ORAL MODERATE-SEVERE PAIN 08/18/17 15:30 08/25/17 15:29 Amlodipine Besylate (Norvasc) 5 mg DAILY ORAL 08/17/17 09:00 09/16/17 08:59 08/18/17 10:25 Clopidogrel Bisulfate (Plavix) 75 mg DAILY ORAL 08/17/17 09:00 09/16/17 08:59 08/18/17 10:25 Dextrose (Dextrose 50%) STAT PRN IV Hypoglycemia 08/16/17 18:45 09/15/17 18:44 Donepezil HCl (Aricept) 10 mg QHS ORAL 08/16/17 21:00 09/15/17 20:59 08/17/17 21:14 Heparin Sodium (Porcine) (Heparin 5000 units/ml) 5,000 units EVERY 12 HOURS SUBQ 08/17/17 21:00 09/16/17 20:59 08/18/17 10:28 Insulin Aspart (NovoLOG) BEFORE MEALS AND HS SUBQ 08/16/17 21:00 09/15/17 20:59 08/18/17 12:37 Levofloxacin 150 ml @ 150 mls/hr Q48H IVPB 08/18/17 15:00 08/25/17 23:59 08/18/17 14:56 Meloxicam (Mobic) 7.5 mg DAILY ORAL 08/17/17 09:00 09/16/17 08:59 08/18/17 10:26 Mirtazapine (Remeron) 7.5 mg BEDTIME ORAL 08/16/17 21:00 09/15/17 20:59 08/17/17 21:14 Oseltamivir Phosphate (Tamiflu) 30 mg BID ORAL 08/16/17 18:00 08/21/17 17:59 08/18/17 10:31 Ramipril (Altace) 10 mg Q12HR ORAL 08/16/17 21:00 09/15/17 20:59 08/18/17 10:26 Sitagliptin Phosphate (Januvia) 25 mg ACBREAKFAST ORAL 08/17/17 06:30 09/16/17 06:29 08/18/17 06:21 Sodium Chloride 1,000 ml @ 75 mls/hr [id number] IV 08/16/17 18:30 09/15/17 18:29 08/18/17 10:31 Tamsulosin HCl (Flomax) 0.4 mg BEDTIME ORAL 08/16/17 21:00 09/15/17 20:59 08/17/17 21:14 Hernandez Garrett M.D. Aug 18, 2017 16:29
[2017-08-18 20:00] VITALS: BP 150/89
[2017-08-18] MEDS: Tamsulosin 0.4mg cap ORAL SCH (20:51)
[2017-08-18] MEDS: Donepezil 10mg tab ORAL SCH (20:51)
[2017-08-18] MEDS ORDERED: Oseltamivir 75mg cap ORAL ONE (21:00)
[2017-08-19] VITALS: BP 147/70
[2017-08-19 04:00] VITALS: BP 160/79
[2017-08-19] MEDS: sitaGLIPtin 25mg tab ORAL SCH (06:21)
[2017-08-19] MEDS: NovoLOG Insulin Flexpen SUBQ SCH ×4 (06:24→20:49)
[2017-08-19 07:36] LABS: BASOPHILS % (AUTO) 0.9 % (0.0-2.0); EOSINOPHILS % (AUTO) 2.6 % (0.0-3.0); HEMATOCRIT 34.7 % (42.0-52.0); HEMOGLOBIN 11.8 G/DL (14.2-18.0); LYMPHOCYTES % (AUTO) 25.9 % (20.0-45.0); MEAN CORPUSCULAR VOLUME 90 FL (80-99); MONOCYTES % (AUTO) 9.2 % (1.0-10.0); NEUTROPHILS % (AUTO) 61.5 % (45.0-75.0); PLATELET COUNT 200 K/UL (150-450); RED BLOOD COUNT 3.86 M/UL (4.70-6.10); RED CELL DISTRIBUTION WIDTH 10.9 % (11.6-14.8); WHITE BLOOD COUNT 8.5 K/UL (4.8-10.8)
[2017-08-19 08:01] LABS: ANION GAP 9 mmol/L (5-15); BLOOD UREA NITROGEN 25 mg/dL (7-18); CALCIUM 8.7 MG/DL (8.5-10.1); CARBON DIOXIDE 23 MMOL/L (21-32); CHLORIDE 105 MMOL/L (98-107); CREATININE 1.2 MG/DL (0.55-1.30); POTASSIUM 4.2 MMOL/L (3.5-5.1); SODIUM 136 MMOL/L (136-145)
--- NOTE | 2017-08-19 08:38 | General Progress Note ---
Assessment/Plan Status: stable Assessment/Plan 1. Influenza A - cont renal dose Tamiflu bid for total of 5 days. 2. Clinical Pneumonia - cont levaquin 3. DM II - on Januvia and SSI for now. 4. HTN - change norvasc 5 mg po bid. 5. CAD - on Plavix 75 mg one po daily. 6. BPH - cont flomax 0.4 mg po qhs. 7. Depression - on remeron 7.5 mg po qhs 8. ARF 2nd to pre-renal azotemia - resolved. off IVF. 9. Generalized weakness - PT eval done. [facility]. Subjective Date patient seen: Aug 19, 2017 Time patient seen: 08:20 Constitutional: Reports: weakness HEENT: Reports: no symptoms Cardiovascular: Reports: no symptoms Respiratory: Reports: cough Gastrointestinal/Abdominal: Reports: no symptoms Genitourinary: Reports: no symptoms Neurologic/Psychiatric: Reports: no symptoms Endocrine: Reports: no symptoms Hematologic/Lymphatic: Reports: no symptoms Allergies: Coded Allergies: No Known Allergies (Unverified , 08/13/17) Subjective Patient is doing better. no sob or chest pain. He still coughing but improved. no fever or chills. Objective Last 24 Hour Vital Signs Date Time Temp Pulse Resp B/P (MAP) Pulse Ox O2 Delivery O2 Flow Rate FiO2 08/19/17 06:21 83 160/79 08/19/17 04:00 97.6 83 19 160/79 97 08/19/17 00:00 97.4 78 19 147/70 97 Room Air 08/18/17 20:50 150/89 08/18/17 20:00 98.3 71 19 150/89 96 Room Air 08/18/17 16:39 96.2 08/18/17 16:15 99 Room Air 08/18/17 16:15 98.4 87 19 137/69 99 Room Air 08/18/17 12:00 96.2 68 18 159/76 97 08/18/17 11:50 97 Room Air 08/18/17 10:26 140/69 08/18/17 10:25 66 140/69 Intake and Output 08/18/17 08/19/17 19:00 07:00 Intake Total 1150 ml 675 ml Output Total 400 ml 1100 ml Balance 750 ml -425 ml Intake Oral 400 ml IV Total 750 ml 675 ml Output Urine Total 400 ml 1100 ml # Voids 2 Laboratory Tests 08/19/17 05:40: Sodium Level 136, Potassium Level 4.2, Chloride Level 105, Carbon Dioxide Level 23, Anion Gap 9, Blood Urea Nitrogen 25H, Creatinine 1.2, Estimat Glomerular Filtration Rate , Glucose Level 160H, Calcium Level 8.7 08/19/17 05:41: White Blood Count 8.5, Red Blood Count 3.86L, Hemoglobin 11.8L, Hematocrit 34.7L , Mean Corpuscular Volume 90, Mean Corpuscular Hemoglobin 30.5, Mean Corpuscular Hemoglobin Concent 33.9, Red Cell Distribution Width 10.9L, Platelet Count 200, Mean Platelet Volume 7.3, Neutrophils (%) (Auto) 61.5, Lymphocytes (%) (Auto) 25.9, Monocytes (%) (Auto) 9.2, Eosinophils (%) (Auto) 2.6, Basophils (%) (Auto) 0.9 Height (Feet): 5 Height (Inches): 8.00 Weight (Pounds): 154 General Appearance: no apparent distress, alert EENT: normal ENT inspection, TMs normal Neck: non-tender, normal alignment, supple Cardiovascular: normal peripheral pulses, normal rate, regular rhythm Respiratory/Chest: no respiratory distress Abdomen: non tender, soft, no organomegaly Extremities: normal range of motion, non-tender Edema: no edema noted Arm (L), no edema noted Arm (R), no edema noted Leg (L), no edema noted Leg (R), no edema noted Pedal (L), no edema noted Pedal (R), no edema noted Generalized Neurologic: alert, oriented x 3, responsive Skin: warm/dry Lymphatic: normal anterior cervical (L), normal anterior cervical (R), normal posterior cervical (L), normal posterior cervical (R), normal submandibular (L) , normal submandibular (R), normal supraclavicular (L), normal supraclavicular ( R), normal axillary (L), normal axillary (R), normal inguinal (L), normal inguinal (R), normal other DARREN CADE Aug 19, 2017 08:37
[2017-08-19 08:55] VITALS: BP 146/75
[2017-08-19] MEDS: Ramipril 5mg cap ORAL SCH ×2 (09:20→20:49)
[2017-08-19] MEDS: Heparin 5000 units/ml inj SUBQ SCH ×2 (09:22→20:55)
[2017-08-19 11:35] VITALS: BP 166/80
--- NOTE | 2017-08-19 15:17 | Infectious Diseases Prog Note ---
Assessment/Plan Problems: (1) Influenza A Assessment & Plan: continue tamiflu renally dosed for 5 days , and keep in droplet isolation (2) Pneumonia Assessment & Plan: due to the above, continue Levaquin empiric coverage for 7 days , monitor CXR (3) Sepsis Assessment & Plan: ruled out , due to the above, await blood culture and continue levaquin for now (4) Fever Assessment & Plan: resolved, due to the above, continue antibiotics and Tylenol (5) Diabetes mellitus Assessment & Plan: recommend tight glycemic control to keep blood glucose between 100-140 Subjective Constitutional: Reports: no symptoms HEENT: Reports: no symptoms Respiratory: Reports: productive cough Breasts: Reports: no symptoms Cardiovascular: Reports: no symptoms Gastrointestinal/Abdominal: Reports: no symptoms Genitourinary: Reports: no symptoms Neurologic: Reports: no symptoms Psychiatric: Reports: no symptoms Skin: Reports: no symptoms Endocrine: Reports: no symptoms Hematologic: Reports: no symptoms Musculoskeletal: Reports: no symptoms Allergies: Coded Allergies: No Known Allergies (Unverified , 08/13/17) Subjective he was up in bed, awkae and alert, has mild cough, no fever or chills, no SOB, no chest pain Objective Vital Signs Last 24 Hour Vital Signs Date Time Temp Pulse Resp B/P (MAP) Pulse Ox O2 Delivery O2 Flow Rate FiO2 08/19/17 11:35 97.4 86 14 166/80 97 Room Air 08/19/17 09:21 82 146/75 08/19/17 09:20 146/75 08/19/17 08:55 97.8 82 15 146/75 97 Room Air 08/19/17 06:21 83 160/79 08/19/17 04:00 97.6 83 19 160/79 97 08/19/17 00:00 97.4 78 19 147/70 97 Room Air 08/18/17 20:50 150/89 08/18/17 20:00 98.3 71 19 150/89 96 Room Air 08/18/17 16:39 96.2 08/18/17 16:15 99 Room Air 08/18/17 16:15 98.4 87 19 137/69 99 Room Air Height (Feet): 5 Height (Inches): 8.00 Weight (Pounds): 154 General Appearance: WD/WN, no acute distress HEENT: normocephalic, atraumatic, anicteric, mucous membranes moist, PERRL Respiratory/Chest: chest wall non-tender, no respiratory distress, no accessory muscle use, decreased breath sounds, crackles/rales Cardiovascular: normal peripheral pulses, normal rate, regular rhythm, no gallop/murmur, no JVD Abdomen: normal bowel sounds, soft, non tender, no organomegaly, non distended , no mass, no scars Extremities: no cyanosis, no clubbing Skin: no rash, no lesions, no ulcers Neurologic/Psychiatric: alert, responsive Lymphatic: no neck adenopathy, no groin adenopathy Microbiology Date/Time Source Procedure Growth Status 08/16/17 20:35 Nasal Nares MRSA Culture - Final NO METHICILLIN RESISTANT STAPH AUREUS... Complete 08/16/17 20:35 Rectum VRE Culture - Final NO VANCOMYCIN RESISTANT ENTEROCOCCUS ... Complete Laboratory Tests Test 08/19/17 05:40 08/19/17 05:41 Sodium Level 136 MMOL/L (136-145) Potassium Level 4.2 MMOL/L (3.5-5.1) Chloride Level 105 MMOL/L (98-107) Carbon Dioxide Level 23 MMOL/L (21-32) Anion Gap 9 mmol/L (5-15) Blood Urea Nitrogen 25 mg/dL (7-18) H Creatinine 1.2 MG/DL (0.55-1.30) Estimat Glomerular Filtration Rate mL/min (>60) Glucose Level 160 MG/DL (74-106) H Calcium Level 8.7 MG/DL (8.5-10.1) White Blood Count 8.5 K/UL (4.8-10.8) Red Blood Count 3.86 M/UL (4.70-6.10) L Hemoglobin 11.8 G/DL (14.2-18.0) L Hematocrit 34.7 % (42.0-52.0) L Mean Corpuscular Volume 90 FL (80-99) Mean Corpuscular Hemoglobin 30.5 PG (27.0-31.0) Mean Corpuscular Hemoglobin Concent 33.9 G/DL (32.0-36.0) Red Cell Distribution Width 10.9 % (11.6-14.8) L Platelet Count 200 K/UL (150-450) Mean Platelet Volume 7.3 FL (6.5-10.1) Neutrophils (%) (Auto) 61.5 % (45.0-75.0) Lymphocytes (%) (Auto) 25.9 % (20.0-45.0) Monocytes (%) (Auto) 9.2 % (1.0-10.0) Eosinophils (%) (Auto) 2.6 % (0.0-3.0) Basophils (%) (Auto) 0.9 % (0.0-2.0) Current Medications Medications (Trade) Dose Ordered Sig/Sai Route PRN Reason Start Time Stop Time Status Last Admin Dose Admin Acetaminophen (Tylenol) 650 mg Q6H PRN ORAL Mild Pain/Temp > 100.5 08/18/17 15:30 09/17/17 15:29 08/18/17 15:46 Acetaminophen/ Hydrocodone Bitart ([place] 5/325) 1 tab Q6H PRN ORAL MODERATE-SEVERE PAIN 08/18/17 15:30 08/25/17 15:29 08/19/17 13:06 Amlodipine Besylate (Norvasc) 5 mg DAILY ORAL 08/17/17 09:00 09/16/17 08:59 08/19/17 09:21 Clopidogrel Bisulfate (Plavix) 75 mg DAILY ORAL 08/17/17 09:00 09/16/17 08:59 08/19/17 09:21 Dextrose (Dextrose 50%) STAT PRN IV Hypoglycemia 08/16/17 18:45 09/15/17 18:44 Donepezil HCl (Aricept) 10 mg QHS ORAL 08/16/17 21:00 09/15/17 20:59 08/18/17 20:51 Heparin Sodium (Porcine) (Heparin 5000 units/ml) 5,000 units EVERY 12 HOURS SUBQ 08/17/17 21:00 09/16/17 20:59 08/19/17 09:22 Insulin Aspart (NovoLOG) BEFORE MEALS AND HS SUBQ 08/16/17 21:00 09/15/17 20:59 08/19/17 06:24 Levofloxacin 150 ml @ 150 mls/hr Q48H IVPB 08/18/17 15:00 08/25/17 23:59 08/18/17 14:56 Meloxicam (Mobic) 7.5 mg DAILY ORAL 08/17/17 09:00 09/16/17 08:59 08/19/17 09:21 Mirtazapine (Remeron) 7.5 mg BEDTIME ORAL 08/16/17 21:00 09/15/17 20:59 08/18/17 20:50 Oseltamivir Phosphate (Tamiflu) 30 mg BID ORAL 08/16/17 18:00 08/21/17 17:59 08/19/17 09:00 Ramipril (Altace) 10 mg Q12HR ORAL 08/16/17 21:00 09/15/17 20:59 08/19/17 09:20 Sitagliptin Phosphate (Januvia) 25 mg ACBREAKFAST ORAL 08/17/17 06:30 09/16/17 06:29 08/19/17 06:21 Sodium Chloride 1,000 ml @ 75 mls/hr [id number] IV 08/16/17 18:30 09/15/17 18:29 08/19/17 00:36 Tamsulosin HCl (Flomax) 0.4 mg BEDTIME ORAL 08/16/17 21:00 09/15/17 20:59 08/18/17 20:51 Hernandez Garrett M.D. Aug 19, 2017 15:17
[2017-08-19 16:00] VITALS: BP 157/78
[2017-08-19 20:00] VITALS: BP 133/67
[2017-08-19] MEDS: Tamsulosin 0.4mg cap ORAL SCH (20:49)
[2017-08-19] MEDS: Donepezil 10mg tab ORAL SCH (20:49)
[2017-08-20] VITALS (7 sets, daily range): BP systolic 136–151; BP diastolic 68–84
[2017-08-20] MEDS: NovoLOG Insulin Flexpen SUBQ SCH ×3 (06:18→17:07)
[2017-08-20] MEDS: sitaGLIPtin 25mg tab ORAL SCH (06:18)
--- NOTE | 2017-08-20 08:48 | General Progress Note ---
Assessment/Plan Status: stable Assessment/Plan 1. Influenza A - cont renal dose Tamiflu bid for total of 5 days. Today is his last day. 2. Clinical Pneumonia - cont levaquin 750 mg daily for total of 5 doses. 3. DM II - on Januvia and SSI for now. 4. HTN - improved. cont norvasc 5 mg po bid. 5. CAD - on Plavix 75 mg one po daily. 6. BPH - cont flomax 0.4 mg po qhs. 7. Depression - on remeron 7.5 mg po qhs 8. ARF 2nd to pre-renal azotemia - resolved. off IVF. 9. Generalized weakness - PT eval done. will refer to [facility] for PT. Subjective Date patient seen: Aug 20, 2017 Time patient seen: 08:40 Constitutional: Reports: weakness HEENT: Reports: no symptoms Cardiovascular: Reports: no symptoms Respiratory: Reports: no symptoms Gastrointestinal/Abdominal: Reports: no symptoms Genitourinary: Reports: no symptoms Neurologic/Psychiatric: Reports: no symptoms Endocrine: Reports: no symptoms Hematologic/Lymphatic: Reports: no symptoms Allergies: Coded Allergies: No Known Allergies (Unverified , 08/13/17) Subjective Patient is doing better. no sob or chest pain. His cough is resolving. no fever or chills. He didn't go to rehab yesterday b/c droplet isolation room was not available. Objective Last 24 Hour Vital Signs Date Time Temp Pulse Resp B/P (MAP) Pulse Ox O2 Delivery O2 Flow Rate FiO2 08/20/17 04:00 97.2 73 19 151/84 98 Room Air 08/20/17 00:00 96.6 72 19 137/70 96 Room Air 08/19/17 20:49 133/67 08/19/17 20:00 98.2 78 19 133/67 96 Room Air 08/19/17 17:52 81 157/78 08/19/17 16:00 97.3 81 20 157/78 99 08/19/17 11:35 97.4 86 14 166/80 97 Room Air 08/19/17 09:21 82 146/75 08/19/17 09:20 146/75 08/19/17 08:55 97.8 82 15 146/75 97 Room Air Intake and Output 08/19/17 08/20/17 19:00 07:00 Intake Total 425 ml 945 ml Output Total 100 ml 800 ml Balance 325 ml 145 ml Intake Oral 350 ml IV Total 75 ml 825 ml Tube Feeding 120 ml Output Urine Total 100 ml 800 ml # Voids 3 3 Height (Feet): 5 Height (Inches): 8.00 Weight (Pounds): 154 General Appearance: no apparent distress, alert Neck: non-tender, normal alignment, supple Cardiovascular: normal peripheral pulses, normal rate, regular rhythm Respiratory/Chest: lungs clear, normal breath sounds Abdomen: normal bowel sounds, non tender, soft Extremities: normal range of motion, non-tender Edema: no edema noted Arm (L), no edema noted Arm (R), no edema noted Leg (L), no edema noted Leg (R), no edema noted Pedal (L), no edema noted Pedal (R), no edema noted Generalized Neurologic: alert, oriented x 3, responsive Skin: warm/dry Lymphatic: normal anterior cervical (L), normal anterior cervical (R), normal posterior cervical (L), normal posterior cervical (R), normal submandibular (L) , normal submandibular (R), normal supraclavicular (L), normal supraclavicular ( R), normal axillary (L), normal axillary (R), normal inguinal (L), normal inguinal (R), normal other DARREN CADE Aug 20, 2017 08:48
[2017-08-20] MEDS: Ramipril 5mg cap ORAL SCH (09:57)
[2017-08-20] MEDS: Heparin 5000 units/ml inj SUBQ SCH (10:05)
[2017-08-20] MEDS ORDERED: NORCO 5-325 TA1 EACH ORAL (16:59)
[2017-08-20] MEDS ORDERED: LEVAQUIN750 MG ORAL (16:59)
[2017-08-20] MEDS ORDERED: NORVASC5 MG ORAL (16:59)
--- NOTE | 2017-08-20 17:15 | Infectious Diseases Prog Note ---
Assessment/Plan Problems: (1) Influenza A Assessment & Plan: continue tamiflu renally dosed for 5 days , and keep in droplet isolation (2) Pneumonia Assessment & Plan: due to the above, continue Levaquin empiric coverage for 7 days , monitor CXR (3) Sepsis Assessment & Plan: ruled out , due to the above, await blood culture and continue levaquin for now (4) Fever Assessment & Plan: resolved, due to the above, continue antibiotics and Tylenol (5) Diabetes mellitus Assessment & Plan: recommend tight glycemic control to keep blood glucose between 100-140 Subjective Constitutional: Reports: no symptoms HEENT: Reports: no symptoms Respiratory: Reports: dry cough Breasts: Reports: no symptoms Cardiovascular: Reports: no symptoms Gastrointestinal/Abdominal: Reports: no symptoms Genitourinary: Reports: no symptoms Neurologic: Reports: no symptoms Psychiatric: Reports: no symptoms Skin: Reports: no symptoms Endocrine: Reports: no symptoms Hematologic: Reports: no symptoms Musculoskeletal: Reports: no symptoms Allergies: Coded Allergies: No Known Allergies (Unverified , 08/13/17) Subjective he was up in bed, awkae and alert, has mild cough, no fever or chills, no SOB, no chest pain Objective Vital Signs Last 24 Hour Vital Signs Date Time Temp Pulse Resp B/P (MAP) Pulse Ox O2 Delivery O2 Flow Rate FiO2 08/20/17 16:09 96.8 83 18 148/78 95 Room Air 08/20/17 16:00 97.7 79 20 147/75 98 08/20/17 12:10 96.5 69 18 143/68 96 Room Air 08/20/17 09:58 82 136/73 08/20/17 09:57 136/73 08/20/17 08:20 98.1 82 18 136/73 98 Room Air 08/20/17 04:00 97.2 73 19 151/84 98 Room Air 08/20/17 00:00 96.6 72 19 137/70 96 Room Air 08/19/17 20:49 133/67 08/19/17 20:00 98.2 78 19 133/67 96 Room Air 08/19/17 17:52 81 157/78 Height (Feet): 5 Height (Inches): 8.00 Weight (Pounds): 154 General Appearance: WD/WN, no acute distress HEENT: normocephalic, atraumatic, anicteric, mucous membranes moist, PERRL, pharynx normal, supple Respiratory/Chest: chest wall non-tender, lungs clear, normal breath sounds, no respiratory distress, no accessory muscle use Cardiovascular: normal peripheral pulses, normal rate, regular rhythm, no gallop/murmur, no JVD Abdomen: normal bowel sounds, soft, non tender, no organomegaly, non distended , no mass, no scars Extremities: no cyanosis, no clubbing Skin: no rash, no lesions, no ulcers Neurologic/Psychiatric: alert, responsive Microbiology Date/Time Source Procedure Growth Status 08/19/17 05:15 Sputum Expectorated Gram Stain - Final Resulted 08/19/17 05:15 Sputum Expectorated Sputum Culture - Preliminary NORMAL UPPER RESPIRATORY GURINDER AT 24 ... Resulted Current Medications Medications (Trade) Dose Ordered Sig/Sai Route PRN Reason Start Time Stop Time Status Last Admin Dose Admin Acetaminophen (Tylenol) 650 mg Q6H PRN ORAL Mild Pain/Temp > 100.5 08/18/17 15:30 09/17/17 15:29 08/18/17 15:46 Acetaminophen/ Hydrocodone Bitart ([place] 5/325) 1 tab Q6H PRN ORAL MODERATE-SEVERE PAIN 08/18/17 15:30 08/25/17 15:29 08/19/17 13:06 Amlodipine Besylate (Norvasc) 5 mg Q12HR ORAL 08/19/17 18:00 09/18/17 17:59 08/20/17 09:58 Clopidogrel Bisulfate (Plavix) 75 mg DAILY ORAL 08/17/17 09:00 09/16/17 08:59 08/20/17 09:57 Dextrose (Dextrose 50%) STAT PRN IV Hypoglycemia 08/16/17 18:45 09/15/17 18:44 Donepezil HCl (Aricept) 10 mg QHS ORAL 08/16/17 21:00 09/15/17 20:59 08/19/17 20:49 Heparin Sodium (Porcine) (Heparin 5000 units/ml) 5,000 units EVERY 12 HOURS SUBQ 08/17/17 21:00 09/16/17 20:59 08/20/17 10:05 Insulin Aspart (NovoLOG) BEFORE MEALS AND HS SUBQ 08/16/17 21:00 09/15/17 20:59 1/23/18 17:07 Levofloxacin 150 ml @ 150 mls/hr Q24H IVPB 08/19/17 18:00 08/26/17 17:59 08/19/17 17:51 Meloxicam (Mobic) 7.5 mg DAILY ORAL 08/17/17 09:00 09/16/17 08:59 08/20/17 09:57 Mirtazapine (Remeron) 7.5 mg BEDTIME ORAL 08/16/17 21:00 09/15/17 20:59 08/19/17 20:49 Oseltamivir Phosphate (Tamiflu) 30 mg BID ORAL 08/16/17 18:00 08/21/17 17:59 08/20/17 09:58 Ramipril (Altace) 10 mg Q12HR ORAL 08/16/17 21:00 09/15/17 20:59 08/20/17 09:57 Sitagliptin Phosphate (Januvia) 25 mg ACBREAKFAST ORAL 08/17/17 06:30 09/16/17 06:29 08/20/17 06:18 Sodium Chloride 1,000 ml @ 75 mls/hr [id number] IV 08/16/17 18:30 09/15/17 18:29 08/20/17 14:37 Tamsulosin HCl (Flomax) 0.4 mg BEDTIME ORAL 08/16/17 21:00 09/15/17 20:59 08/19/17 20:49 Hernandez Garrett M.D. Aug 20, 2017 17:15
--- NOTE | 2017-08-21 01:30 | Discharge Summary ---
DATE OF ADMISSION: 08/16/2017 DATE OF DISCHARGE: 08/20/2017 HOSPITAL COURSE: This is an 82-year-old [place] male, who was brought in by paramedics for complaint of a productive cough and chills for four to five days prior to admission. The patient also had a fall and a CT that was done prior to this hospitalization in the emergency room for pelvic and spine was negative for any fracture and the patient also had a poor appetite and was found to have pneumonia and influenza. In the emergency room, the patient was started on Tamiflu 30 mg twice a day for a total of five days and Levaquin 750 mg for pneumonia. The patient responded to treatment well. Infectious Disease was consulted as well. He still has had a complaint of low back pain and difficulty walking with generalized weakness. It was decided to transfer the patient to [facility] for a couple of weeks for physical therapy and continuation of the antibiotic, to Levaquin. DISCHARGE DIAGNOSES: Include: 1. Influenza A. 2. Pneumonia. 3. Hypertension. 4. Diabetes mellitus, type 2. 5. Acute renal failure, secondary to prerenal azotemia, resolved. 6. Depression. 7. Generalized weakness. 8. Benign prostatic hypertrophy. 9. Coronary artery disease. DISCHARGE MEDICATIONS: 1. Norvasc 5 mg b.i.d. 2. [place] 5/325 mg every 6 hours as needed. 3. Levaquin 750 mg p.o. daily for three days. 4. Clonidine 0.1 mg daily as needed for systolic blood pressure greater than 170. 5. Plavix 75 mg daily. 6. Colace 250 mg daily. 7. Aricept 10 mg daily. 8. Mobic 7.5 mg daily. 9. Metformin 1000 mg twice a day. 10. Mirtazapine 7.5 mg at bedtime. 11. Ramipril 10 mg b.i.d. 12. Januvia 100 mg daily. 13. VESIcare 5 mg at bedtime. 14. Flomax 0.4 mg daily. DISPOSITION: The patient will be transferred to [facility] for about couple of weeks of physical therapy and then the patient will be transferred after that to assisted living, [facility] where he normally resides. Farid Azizollahi, M.D. DR: JUAN CARLOS JOB#: [id number] CC: [id number]
--- NOTE | 2017-08-28 17:55 | Cardiology Report ---
APPROVED REPORT EKG Measurement Heart [id number] Normal sinus rhythm Left axis deviation Minimal voltage criteria for LVH, may be normal variant Possible Lateral infarct, age undetermined Abnormal ECG
== END 2017-08-20 19:50 | DRG 194 ==
LOC: EDBD 13:16 → EMR 13:23 → 4W 13:55 → EDBEDREQ 14:20 → 3E 15:54 → 4E 18:13 → EDBEDREQ 18:14 → 4E 18:15
DX: J10.00 Influenza due to other identified influenza virus with unspecified type of pneumonia (principal); N39.0 Urinary tract infection, site not specified; N17.9 Acute kidney failure, unspecified; E11.9 Type 2 diabetes mellitus without complications; I10 Essential (primary) hypertension; I25.10 Atherosclerotic heart disease of native coronary artery without angina pectoris; F32.9 Major depressive disorder, single episode, unspecified; N40.0 Benign prostatic hyperplasia without lower urinary tract symptoms; Z79.02 Long term (current) use of antithrombotics/antiplatelets
CPT/HCPCS: 36415; 71045; 72131; 72192; 80048; 80053; 81003; 82962; 85025; 86710; 87040; 87070; 87081; 87205; 93005; 99285; J1815